=== PATIENT | male | born 2000 | race Caucasian/White ===

== ENCOUNTER 2020-06-20 16:18 | Emergency (ER) | payer BC, OTHER ==
[2020-06-20] MEDS ORDERED: Sodium Chloride 0.9% 10 ML Syringe FLUSH PRN (17:08)
[2020-06-20] MEDS ORDERED: Acetaminophen/oxyCODONE 325-5 MG Tab PO ONE (17:08)
[2020-06-20] MEDS ORDERED: Sodium Chloride 0.9% 2.5 ML Syringe FLUSH PRN (17:08)
[2020-06-20 18:15] LABS: BLOOD UREA NITROGEN,BUN 15 mg/dL (7.0-18.0); CARBON DIOXIDE,CO2 28.6 mmol/L (21.0-32.0); CHLORIDE,CL 103 mmol/L (98-107); GLUCOSE RANDOM 83 mg/dL (74-106); POTASSIUM,K 3.6 mmol/L (3.5-5.1); SODIUM,NA 140 mmol/L (136-148)
--- NOTE | 2020-06-20 19:09 | CT ---
INDICATION: Head trauma with loss of consciousness. COMPARISON: None available. TECHNIQUE: CT examination of the head was performed with 3 mm thick axial, sagittal, and coronal sections without intravenous contrast. Images were obtained from the vertex of the skull through the skull base, and I examined the images with the brain and bone windows. Please note that all CT scans at this facility use dose modulation, iterative reconstruction, and/or weight-based dosing when appropriate to reduce radiation dose to as low as reasonably achievable. FINDINGS: : The brain is normal in appearance for the patient`s age on today`s study, with no sign of mass lesion, mass effect, hemorrhage, or edema. The ventricles and sulci are normal in appearance for the patient`s age. The visualized portions of the orbits are normal in appearance. There are a few mucous retention cyst in the inferior right maxillary sinus. The rest of the visualized portions of the paranasal sinuses and mastoids are clear. The osseous structures are normal in their appearance with no sign of abnormality in the skull base or calvarium. IMPRESSION: No sign of closed head injury. Normal CT appearance of the brain for the patient`s age. Please note that all CT scans at this facility use dose modulation, iterative reconstruction, and/or weight-based dosing when appropriate to reduce radiation dose to as low as reasonably achievable. Dictated by Brant France MD @ Jun 20 2020 7:05PM Signed by Dr. Brant France @ Jun 20 2020 7:08PM
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
--- NOTE | 2020-06-20 19:11 | CR ---
INDICATION: Fall. Clavicle deformity. TECHNIQUE: Three views left shoulder. IMPRESSION: There is a left comminuted clavicle fracture with 3 parts. Separation of the proximal and distal fracture fragments and vertical orientation of the middle part of the fracture. The fracture separation at the mid clavicle is 3.2 cm. The distal clavicle fragment maintains alignment with the acromion as well as the coracoid. The glenohumeral space and humerus appear intact and within normal limits. Dictated by Gilles Hnasen MD @ Jun 20 2020 7:09PM Signed by Dr. Gilles Hansen @ Jun 20 2020 7:10PM
== END 2020-06-20 20:02 | disposition home or self-care (01) ==
LOC: MW.ED 16:18
DX: S06.9X9A Unspecified intracranial injury with loss of consciousness of unspecified duration, initial encounter (principal); S42.022A Displaced fracture of shaft of left clavicle, initial encounter for closed fracture; S00.81XA Abrasion of other part of head, initial encounter; D72.829 Elevated white blood cell count, unspecified; V29.9XXA Motorcycle rider (driver) (passenger) injured in unspecified traffic accident, initial encounter; Y92.828 Other wilderness area as the place of occurrence of the external cause
CPT/HCPCS: 36415; 70450; 73030; 80048; 84484; 85025; 93005; 99285; A9270; 99283